=== PATIENT | male | born 1970 | race African-American/Black ===

== ENCOUNTER 2020-11-25 01:04 | Emergency (ER) | payer OTHER ==
[~2020-11-25] VITALS: Ht 170.2 cm; Wt 81.6 kg
[2020-11-25 01:40] VITALS: BP_SYST 143
--- NOTE | 2020-11-25 01:43 | NUR ---
Patient ambulatory to bed hallway 1 for evaluation
--- NOTE | 2020-11-25 01:44 | NUR ---
ER at bedside examining patient.
[2020-11-25] MEDS ORDERED: KETOROLAC TROMETHAMINE 60 MG/2 ML VIAL IM ONE (01:45)
[2020-11-25] MEDS ORDERED: MORPHINE 4 MG INJ. 4 MG/ML VIAL IM ONE (01:45)
--- NOTE | 2020-11-25 01:47 | NUR ---
Patient brought in complaining of sudden onset right sided neck pain 10/10, non traumatic. No other complaints per patient or as noted.
[2020-11-25] MEDS ORDERED: NAPR-690 PO (02:49)
[2020-11-25 02:52] VITALS: BP_SYST 136
--- NOTE | 2020-11-25 02:52 | NUR ---
Patient given written and verbal discharge instructions and verbalizes understanding. ER MD discussed with patient the results and treatment provided. Patient in stable condition. ID arm band removed. Rx of Naproxen given. Patient educated on pain management and to follow up with PMD. Pain Scale 0/10 Opportunity for questions provided and answered. Medication side effect fact sheet provided.
== END 2020-11-25 02:52 | disposition home or self-care (01) ==
LOC: SED 01:04
DX: M43.6 Torticollis (principal); Z79.899 Other long term (current) drug therapy
CPT/HCPCS: 96372; 99284; J1885; J2270